=== PATIENT | male | born 1935 | race Two or more races ===

== ENCOUNTER 2017-04-09 03:20 | Inpatient (IN) | payer MEDICARE, OTHER ==
[~2017-04-09] VITALS: Ht 188 cm; Wt 80.3 kg
[~2017-04-09 03:20] MED LIST: ASPI-991 PO; Bisacodyl PO; CARV6.252 PO
--- NOTE | 2017-04-09 03:30 | NUR ---
PT AMBULATORY TO ER BED 6, BB SELF. "I'VE BEEN SWEATY AND FEEL DISORIENTED THIS MORNING." PT AOX4 RR EVEN AND UNLABORED. NO SOB NOTED. NAD NOTED. NO NVD AT THIS TIME. PT GOWNED AND PLACED ON MONITOR WAITING FOR MD JARA.
--- NOTE | 2017-04-09 03:40 | NUR ---
DR. BRICEÑO AT BEDSIDE FOR EVAL.
[2017-04-09] MEDS ORDERED: IV NS 0.9% 500 ML BAG IV ONE (04:00)
[2017-04-09] MEDS ORDERED: IV SET PRIMARY 1 EA INFUS.SET MC ONE (04:07)
[2017-04-09] MEDS ORDERED: IV NS 0.9% 500 ML IV ONE (04:07)
[2017-04-09 04:08] LABS: BASOPHILS # (AUTO) 0.1 /CMM (0.0-0.2); BASOPHILS % (AUTO) 0.7 % (0.0-2.0); EOSINOPHILS # (AUTO) 0.3 /CMM (0.0-0.7); EOSINOPHILS % (AUTO) 3.3 % (0.0-6.0); HEMATOCRIT 43 % (39-51); HEMOGLOBIN 14.4 g/dL (13.5-17.5); LYMPHOCYTES # (AUTO) 1.7 /CMM (0.8-4.8); LYMPHOCYTES % (AUTO) 21.3 % (20.0-44.0); MEAN CORPUSCULAR HEMOGLOBIN 31 PG (26.0-33.0); MEAN CORPUSCULAR HGB CONC 34 g/dl (31.0-36.0); MEAN CORPUSCULAR VOLUME 94 fL (80-96); MONOCYTES # (AUTO) 0.6 /CMM (0.1-1.30); MONOCYTES % (AUTO) 7.9 % (2.0-12.0); NEUTROPHILS # (AUTO) 5.5 /CMM (1.8-8.9); NEUTROPHILS % (AUTO) 66.8 % (43.0-81.0); PLATELET COUNT (AUTO) 214 /CMM (150-450); RDW COEFFICIENT OF VARIATION 13.8 (11.5-15.0); RED BLOOD CELL COUNT(AUTO) 4.59 MIL/uL (4.5-6.0); WHITE BLOOD COUNT (AUTO) 8.2 K/uL (4.3-11.0)
[2017-04-09 04:20] LABS: SERUM AMMONIA 25 umol/L (11-32)
[2017-04-09 04:26] LABS: ALANINE AMINOTRANSFERASE 18 U/L (12-78); ALBUMIN 3.3 g/dL (3.4-5.0); ALKALINE PHOSPHATASE 112 U/L (46-116); ASPARTATE AMINOTRANSFERASE 21 U/L (15-37); BILIRUBIN,DIRECT 0.1 mg/dL (0.0-0.2); BILIRUBIN,TOTAL 0.5 mg/dL (0.2-1.0); CALCIUM, SERUM 9.9 mg/dL (8.5-10.1); CARBON DIOXIDE 24 mmol/L (21-32); CHLORIDE 107 mmol/L (98-107); CREATININE 2.7 mg/dL (0.6-1.3); GLUCOSE 98 mg/dL (74-106); POTASSIUM 4.4 mmol/L (3.5-5.1); SODIUM SERUM 142 mmol/L (136-145); TOTAL PROTEIN, SERUM 7.2 g/dL (6.4-8.2); UREA NITROGEN, BLOOD 56 mg/dL (7-18)
[2017-04-09 04:28] LABS: INR 1.02 (0.87-1.13); PROTHROMBIN TIME 10.9 SECS (9.5-12.7)
--- NOTE | 2017-04-09 04:29 | NUR ---
PT TO CT.
[2017-04-09 04:30] LABS: SALICYLATE 0.9 mg/dL (2.8-20.0)
[2017-04-09 04:34] LABS: ALCOHOL, BLOOD < 3 mg/dL (0-0)
--- NOTE | 2017-04-09 04:39 | NUR ---
PT RETURNED FROM CT.
[2017-04-09 04:51] LABS: THYROID STIMULATING HORMONE 3.733 uIU/mL (0.358-3.74); TROPONIN I 0.036 ng/mL (0.00-0.056)
--- NOTE | 2017-04-09 05:26 | NUR ---
DR. NEGRA ORELLANA
--- NOTE | 2017-04-09 05:29 | NUR ---
ASSIGNED TELE BED 323-2
--- NOTE | 2017-04-09 05:33 | NUR ---
URINE COLLECTED. CALLED LAB FOR FINISHING SUPERVISOR
--- NOTE | 2017-04-09 05:39 | NUR ---
REPORT GIVEN TO HARMAN RAMSEY FOR TELE BED 323-2
--- NOTE | 2017-04-09 05:56 | NUR ---
SECOND CALL MADE FOR NEGRA
[2017-04-09 05:58] LABS: APPEARANCE,URINE CLOUDY (CLEAR); COLOR,URINE YELLOW (YELLOW)
[2017-04-09 05:59] LABS: PROTEIN,URINE 1+ mg/dl (NEGATIVE)
[2017-04-09 06:00] LABS: BILIRUBIN,URINE NEGATIVE (NEGATIVE); BLOOD, URINE 3+ Ery/uL (NEGATIVE); KETONES,URINE NEGATIVE (NEGATIVE); UGLUCOSE NEGATIVE (NEGATIVE)
[2017-04-09 06:01] LABS: LEUKOCYTE ESTERASE ,URINE 3+ (NEGATIVE); NITRITE, URINE POSITIVE (NEGATIVE); UROBILINOGEN,URINE 0.2 EU/dL (0.2)
[2017-04-09 06:03] LABS: BACTERIA,URINE 3+ /HPF (None Seen); SQUAMOUS EPITHELIAL CELL,UR Rare /HPF (None Seen); WBC,URINE TOO NUMEROUS TO COUN /HPF (0-3)
--- NOTE | 2017-04-09 06:03 | NUR ---
DR. LEE SPEAKING TO DR. BRICEÑO REGARDING ADMISSION
[2017-04-09 06:30] VITALS: BP 133/67
--- NOTE | 2017-04-09 06:30 | NUR ---
TELE HUMAN RESOURCES REPRESENTATIVE INITIAL NOTES' ADMIT PT FROM ER VIA GUROFELIA ACCOMPANIED BY ER NURSE. DX OF AMS. PT IS AWAKE AND ALERT ORIENTED WHERE HE AT AND HOW TO USED THE CALL LIGHT SYSTEM. DENIES ANY PAIN OR ANY DISCOMFORT. SKIN WARM AND DRY TO TOUCH. HEPLOCK RIGHT HAND GAUGE 18 PATENT AND INTACT . 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 KEPT HIM WARM AND COMFORTABLE AT ALL TIMES. PLACE CALL LIGHT AT REACH. ENDORSE TO AM NURSE FOR CONTINUITY OF CARE.
[2017-04-09] MEDS ORDERED: ONDANSETRON HCL/PF 4 MG/2 ML VIAL IVP PRN (07:30)
[2017-04-09] MEDS ORDERED: Z GUARD REMEDY 2 OZ OINT TP PRN (07:30)
[2017-04-09] MEDS ORDERED: ZOLPIDEM TARTRATE 5 MG TABLET PO PRN (07:30)
[2017-04-09] MEDS ORDERED: MAGNESIUM HYDROXIDE 30 ML UDC PO PRN (07:30)
[2017-04-09] MEDS ORDERED: ACETAMINOPHEN 325 MG TABLET PO PRN (07:30)
[2017-04-09] MEDS ORDERED: MAG HYDROX/AL HYDROX/SIMETH 30 ML UDC PO PRN (07:30)
[2017-04-09] MEDS ORDERED: HYDROCODONE/APAP 5/325MG 1 EACH TABLET PO PRN (07:30)
--- NOTE | 2017-04-09 07:30 | NUR ---
DANCE MASTER INITIAL NOTE PT ON BED, AWAKE AND ALERT ORIENTED X3. HARD OF HEARING WHICH HE CLAIMS NEW TO HIM. AMBULATORY, DENIES ANY PAIN OR ANY DISCOMFORT. SKIN WARM AND DRY TO TOUCH. HEPLOCK RIGHT HAND GAUGE 18 PATENT AND INTACT. TELE SR WITH BBB WITH PVC'S HEART RATE 73. KEPT HIM WARM AND COMFORTABLE AT ALL TIMES. PLACE CALL LIGHT AT REACH.
[2017-04-09 08:00] VITALS: BP 137/61
[2017-04-09] MEDS: CARVEDILOL 6.25 MG TABLET PO SCH ×2 (09:00→16:50)
[2017-04-09] MEDS ORDERED: IV SET PRIMARY PUMP SET 1 EA INFUS.SET MC ONE (10:00)
[2017-04-09 10:02] LABS: MAGNESIUM 2.1 mg/dL (1.8-2.4); PHOSPHORUS 3.3 mg/dL (2.5-4.9)
[2017-04-09] MEDS: ASPIRIN EC 81 MG TABLET.DR PO SCH (10:12)
[2017-04-09] MEDS: PANTOPRAZOLE 40 MG TABLET.DR PO SCH (10:17)
[2017-04-09] MEDS: IV NS 0.9% 1,000 ML IV PRN (10:17)
[2017-04-09 16:00] VITALS: BP 138/71
[2017-04-09] MEDS ORDERED: SECONDARY IV SET 1 EA INFUS.SET MC ONE (17:38)
[2017-04-09] MEDS ORDERED: CEFTRIAXONE 1 G in IV D5W 50 ML IV SCH (18:00)
--- NOTE | 2017-04-09 19:30 | NUR ---
RN NOTE; RECEIVED PT IN BED AWAKE, A, OX3. BREATHING EVENLY. NO SOB. NO DISTRESS. NO C/O PAIN OR DISCOMFORT. NEEDS ATTENDED. CALL LIGHT WITHIN REACH. WILL CONT TO MONITOR.
[2017-04-09 20:00] VITALS: BP 133/79
--- NOTE | 2017-04-10 06:28 | NUR ---
RN NOTE; PT IN BED AWAKE AND ALERT. BREATHING EVENLY. NO ACUTE CHANGES DURING THE NIGHT. REMAINED ORIENTED. NO SEIZURE ACTIVITY. NO C/O PAIN OR DISCOMFORT. NEEDS MET. CALL LIGHT WITHIN REACH. WILL CONT TO MONITOR AND WILL ENDORSE TO AM SHIFT FOR [place].
[2017-04-10] MEDS: IV NS 0.9% 1,000 ML IV PRN (06:50)
--- NOTE | 2017-04-10 07:00 | NUR ---
MS RN INITIAL NOTES REPORT RECEIVED AT THE BEDSIDE. PATIENT IS RESTING COMFORTABLY IN BED. NO SOB OR DISTRESS NOTED AT THIS TIME. PATIENT DENIES PAIN. PATIENT STATES "I WANT TO GO HOME TODAY." BED IN A LOW POSITION, CALL LIGHT WITHIN PATIENT REACH. WILL CONTINUE TO MONITOR.
--- NOTE | 2017-04-10 07:40 | NUR ---
RN NOTES FROM REPORT, DR BERNARDO WROTE IN NOTES THAT PATIENT IS FOR POSSIBLE STRESS TEST. NO ORDERS ARE PLACED. WILL HOLD MORNING MEDS AND FOOD UNTIL ABLE TO SPEAK TO MD.
[2017-04-10 07:56] LABS: BASOPHILS # (AUTO) 0.1 /CMM (0.0-0.2); BASOPHILS % (AUTO) 0.8 % (0.0-2.0); EOSINOPHILS # (AUTO) 0.4 /CMM (0.0-0.7); EOSINOPHILS % (AUTO) 5.5 % (0.0-6.0); HEMATOCRIT 42 % (39-51); HEMOGLOBIN 14.1 g/dL (13.5-17.5); LYMPHOCYTES # (AUTO) 1.5 /CMM (0.8-4.8); LYMPHOCYTES % (AUTO) 19.4 % (20.0-44.0); MEAN CORPUSCULAR HEMOGLOBIN 32 PG (26.0-33.0); MEAN CORPUSCULAR HGB CONC 34 g/dl (31.0-36.0); MEAN CORPUSCULAR VOLUME 94 fL (80-96); MONOCYTES # (AUTO) 0.6 /CMM (0.1-1.30); MONOCYTES % (AUTO) 8.5 % (2.0-12.0); NEUTROPHILS # (AUTO) 4.9 /CMM (1.8-8.9); NEUTROPHILS % (AUTO) 65.8 % (43.0-81.0); PLATELET COUNT (AUTO) 208 /CMM (150-450); RDW COEFFICIENT OF VARIATION 13.7 (11.5-15.0); RED BLOOD CELL COUNT(AUTO) 4.42 MIL/uL (4.5-6.0); WHITE BLOOD COUNT (AUTO) 7.5 K/uL (4.3-11.0)
[2017-04-10 08:00] VITALS: BP 133/67
[2017-04-10 08:20] LABS: CALCIUM, SERUM 9.5 mg/dL (8.5-10.1); CARBON DIOXIDE 24 mmol/L (21-32); CHLORIDE 108 mmol/L (98-107); CREATININE 2.5 mg/dL (0.6-1.3); GLUCOSE 89 mg/dL (74-106); PHOSPHORUS 2.9 mg/dL (2.5-4.9); POTASSIUM 4.3 mmol/L (3.5-5.1); SODIUM SERUM 139 mmol/L (136-145); UREA NITROGEN, BLOOD 47 mg/dL (7-18)
[2017-04-10] MEDS: PANTOPRAZOLE 40 MG TABLET.DR PO SCH (08:48)
[2017-04-10] MEDS: ASPIRIN EC 81 MG TABLET.DR PO SCH (08:48)
[2017-04-10] MEDS: CARVEDILOL 6.25 MG TABLET PO SCH ×2 (08:49→16:44)
[2017-04-10 12:01] LABS: CHOLESTEROL 128 mg/dL (<200); HDL CHOLESTEROL 42 mg/dL (40-60); LDL 67 mg/dL (0-99); TRIGLYCERIDES 74 mg/dL (30-150)
[2017-04-10] MEDS ORDERED: hydrALAZINE HCL 25 MG TABLET PO SCH (13:00)
[2017-04-10] MEDS ORDERED: SULF1TAB48 PO (15:23)
[2017-04-10] MEDS ORDERED: HYDR-4076 PO (15:32)
[2017-04-10 16:44] VITALS: BP 133/80
--- NOTE | 2017-04-10 16:58 | NUR ---
MS FIBER DRIER OPERATOR NOTES DISCHARGE INSTRUCTIONS GIVEN TO THE PATIENT AND HIS DAUGHTER AND ABLE TO UNDERSTAND. PAPERWORK SIGNED AND BELONGINGS ACCOUNTED FOR. NEW PRESCRIPTIONS GIVEN TO THE PATIENT WITH INSTRUCTIONS TO START THE MEDICATIONS TONIGHT. PATIENT HAS ALREADY MADE A FOLLOW UP APPOINTMENT WITH DR BERNARDO AND WILL OBTAIN RESULTS OF THE EEG TAKEN TODAY IN OUTPATIENT. IV DISCONNECTED AND PRESSURE APPLIED, NO BLEEDING NOTED AT THE SITE. NO SOB OR DISTRESS NOTED AT THIS TIME. PATIENT DENIES PAIN. PATIENT LEFT IN STABLE CONDITION, AMBULATORY WITH STEADY GAIT, ACCOMPANIED BY DAUGHTER. PATIENT TO DISCHARGE HOME.
[2017-04-11 09:23] LABS: *SPE A/G RATIO 1.2 (0.7-1.7); *SPE ALBUMIN 3.6 g/dL (2.9-4.4); *SPE ALPHA-1-GLOBULIN 0.2 g/dL (0.0-0.4); *SPE ALPHA-2-GLOBULIN 0.8 g/dL (0.4-1.0); *SPE BETA GLOBULIN 0.8 g/dL (0.7-1.3); *SPE GLOBULIN, TOTAL 3.1 g/dL (2.2-3.9); *SPE M-SPIKE Not Observed g/dL (Not Observed); *SPE PROTEIN TOTAL 6.7 g/dL (6.0-8.5); *SPEGAMMA GLOBULIN 1.3 g/dL (0.4-1.8)
== END 2017-04-10 16:45 | disposition home or self-care (01) | DRG 682 ==
LOC: ER 03:21 → TELE 05:30 → MED 10:02
PROVIDERS: ADMIT Internal Medicine; ATTEND Internal Medicine
DX: N17.0 Acute kidney failure with tubular necrosis (principal); G93.41 Metabolic encephalopathy; N39.0 Urinary tract infection, site not specified; E44.1 Mild protein-calorie malnutrition; I42.9 Cardiomyopathy, unspecified; N13.8 Other obstructive and reflux uropathy; Z85.038 Personal history of other malignant neoplasm of large intestine; I25.10 Atherosclerotic heart disease of native coronary artery without angina pectoris; N18.9 Chronic kidney disease, unspecified; Z86.73 Personal history of transient ischemic attack (TIA), and cerebral infarction without residual deficits; Z87.442 Personal history of urinary calculi; Z68.22 Body mass index [BMI] 22.0-22.9, adult; A49.01 Methicillin susceptible Staphylococcus aureus infection, unspecified site; R07.9 Chest pain, unspecified; I49.3 Ventricular premature depolarization
CPT/HCPCS: 36415; 70450-TC; 71010-TC; 76770-TC; 80048-TC; 80061-TC; 80076-TC; 81000-TC; 82140-TC; 83735-TC; 84100-TC; 84155; 84165; 84439-TC; 84443-TC; 84484-TC; 85025-TC; 85730-TC; 87081-TC; 87086-TC; 93307-TC; 95819-TC; 97001-TC; G0480; J0696; J7030; J7040; J7060; Z7610

== ENCOUNTER 2019-01-09 13:18 | Inpatient (IN) | payer MEDICARE, OTHER ==
[~2019-01-09] VITALS: Ht 182.9 cm; Wt 80.7 kg
[~2019-01-09 13:18] MED LIST changes: +ASPI-1152 PO; -ASPI-991 PO; +HYDR-4076 PO; +SULF1TAB48 PO
--- NOTE | 2019-01-09 13:26 | NUR ---
PT LABS DRAWNED AND SENT TO LAB.
--- NOTE | 2019-01-09 13:29 | NUR ---
PT SEAN RAHMAN 102 "was out w/room mate and he called stating he was not acting right- had a blank stare and was confused had similar incidents" PT IS AAOX3, NOT IN RESPIRATORY DISTRESS, V/S STABLE, HOOOKED TO MONITOR, KEPT RESTED AND COMFORTABLE, WILL CONTINUE TO MONITOR.
[2019-01-09] MEDS ORDERED: IV NS 0.9% 500 ML BAG IV ONE (13:30)
--- NOTE | 2019-01-09 13:30 | NUR ---
SEEN AND EXAMINED BY INNA MALDONADO
[2019-01-09 13:36] LABS: BASOPHILS % (AUTO) 0.8 % (0.0-2.0); EOSINOPHILS % (AUTO) 3.2 % (0.0-6.0); HEMATOCRIT 38 % (39-51); HEMOGLOBIN 12.6 g/dL (13.5-17.5); MEAN CORPUSCULAR HGB CONC 33 g/dl (31.0-36.0); MEAN CORPUSCULAR VOLUME 97 fL (80-96); MONOCYTES # (AUTO) 0.6 /CMM (0.1-1.30); MONOCYTES % (AUTO) 11.4 % (2.0-12.0); NEUTROPHILS # (AUTO) 3.8 /CMM (1.8-8.9); NEUTROPHILS % (AUTO) 66.6 % (43.0-81.0); PLATELET COUNT (AUTO) 169 /CMM (150-450); RED BLOOD CELL COUNT(AUTO) 3.93 MIL/uL (4.5-6.0); WHITE BLOOD COUNT (AUTO) 5.7 K/uL (4.3-11.0)
--- NOTE | 2019-01-09 13:44 | NUR ---
URINE SPECIMEN COLLECTED AND SENT TO LAB.
[2019-01-09 13:45] LABS: CALCIUM, SERUM 9.7 mg/dL (8.5-10.1); CARBON DIOXIDE 25 mmol/L (21-32); CHLORIDE 107 mmol/L (98-107); CREATININE 2.9 mg/dL (0.6-1.3); GLUCOSE 118 mg/dL (74-106); POTASSIUM 5.1 mmol/L (3.5-5.1); SODIUM SERUM 136 mmol/L (136-145); UREA NITROGEN, BLOOD 67 mg/dL (7-18)
[2019-01-09 13:56] LABS: ALANINE AMINOTRANSFERASE 18 U/L (12-78); ALBUMIN 3.3 g/dL (3.4-5.0); ALCOHOL, BLOOD < 3 mg/dL (0-0); ALKALINE PHOSPHATASE 118 U/L (46-116); ASPARTATE AMINOTRANSFERASE 18 U/L (15-37); BILIRUBIN,DIRECT 0.1 mg/dL (0.0-0.2); BILIRUBIN,TOTAL 0.2 mg/dL (0.2-1.0); TOTAL PROTEIN, SERUM 6.9 g/dL (6.4-8.2)
--- NOTE | 2019-01-09 14:00 | NUR ---
PT IS WHEELED TO CT SCAN VIA [facility].
[2019-01-09 14:05] LABS: APPEARANCE,URINE Turbid (CLEAR); BILIRUBIN,URINE Negative (NEGATIVE); BLOOD, URINE Moderate Ery/uL (NEGATIVE); COLOR,URINE Yellow (YELLOW); KETONES,URINE Negative (NEGATIVE); LEUKOCYTE ESTERASE ,URINE Large (NEGATIVE); NITRITE, URINE Positive (NEGATIVE); PROTEIN,URINE 100 mg/dl (NEGATIVE); UGLUCOSE Negative (NEGATIVE); UROBILINOGEN,URINE 0.2 EU/dL (0.2)
[2019-01-09 14:07] LABS: BACTERIA,URINE 3+ /HPF (None Seen); RBC,URINE 21-50 /HPF (0-2); WBC,URINE TOO NUMEROUS TO COUN /HPF (0-3)
[2019-01-09 14:08] LABS: SQUAMOUS EPITHELIAL CELL,UR None Seen /HPF (None Seen)
[2019-01-09] MEDS ORDERED: CEFTRIAXONE 1GM BAG (ER ONLY) 50 ML IV ONE (14:26)
[2019-01-09] MEDS ORDERED: CEFTRIAXONE 1GM BAG (ER ONLY) 1 GM/50 ML PIGGYBACK IV ONE (14:30)
--- NOTE | 2019-01-09 14:33 | NUR ---
CALLED NURSING SUP. FOR TELE BED
[2019-01-09] MEDS ORDERED: MAGNESIUM HYDROXIDE 30 ML UDC PO PRN (15:00)
[2019-01-09] MEDS ORDERED: Z GUARD REMEDY 2 OZ OINT TP PRN (15:00)
[2019-01-09] MEDS ORDERED: ONDANSETRON HCL/PF 4 MG/2 ML VIAL IVP PRN (15:00)
[2019-01-09] MEDS ORDERED: ACETAMINOPHEN 325 MG TABLET PO PRN (15:00)
[2019-01-09] MEDS ORDERED: ZOLPIDEM TARTRATE 5 MG TABLET PO PRN (15:00)
[2019-01-09] MEDS ORDERED: HYDROCODONE/APAP 5/325MG 1 EACH TABLET PO PRN (15:00)
[2019-01-09] MEDS ORDERED: MAG HYDROX/AL HYDROX/SIMETH 30 ML UDC PO PRN (15:00)
--- NOTE | 2019-01-09 15:07 | NUR ---
REPORT GIVEN TO HARMAN TORRES FOR [place].
[2019-01-09] MEDS ORDERED: LEVE250T2 PO (15:18)
[2019-01-09] MEDS ORDERED: VALS40TA4 PO (15:27)
[2019-01-09] MEDS ORDERED: BISACODYL (5 MG) 5 MG TABLET.DR PO PRN (16:00)
[2019-01-09] MEDS ORDERED: LEVETIRACETAM (250 MG) 250 MG TABLET PO SCH ×2 (16:30)
[2019-01-09] MEDS: VALSARTAN 40 MG TABLET PO SCH (16:30)
[2019-01-09] MEDS: LEVETIRACETAM (250 MG) 250 MG TABLET PO SCH ×2 (16:30→21:54)
[2019-01-09 17:00] VITALS: BP 108/63
[2019-01-09] MEDS: CARVEDILOL 6.25 MG TABLET PO SCH (17:00)
--- NOTE | 2019-01-09 19:44 | NUR ---
RN NOTE RECEIVED PATIENT FROM ER 1400. ALERT AND ORIENTED. DAUGHTER AT BEDSIDE. VITALS WNL, BLOOD PRESSURE LOW, DID NOT ADMINISTER BLOOD PRESSURE MEDICATION PER PROTOCAL. FAMILY AWARE. ENFORCE IMPORTANCE OF SEIZURE MEDICATION AND COMPLIANCE. BED IN LOW POSITION, CONT TO MONITOR.
--- NOTE | 2019-01-09 19:50 | NUR ---
RN NOTES RECEIVED PATIENT AWAKE IN BED, NO APPARENT DISTRESS NOTED, DENIES ANY PAIN, IV ACCESS INTACT AND PATENT, ALL SAFETY MEASURES IN PLACED, BED IN LOW LOCKED POSITION, BED SIDE RAILS UP X2, WILL MONITOR ACCORDINGLY.
[2019-01-09 21:00] VITALS: BP 108/63
[2019-01-09] MEDS ORDERED: hydrALAZINE HCL 25 MG TABLET PO SCH (21:00)
[2019-01-10] VITALS (7 sets, daily range): BP systolic 91–125; BP diastolic 48–70
--- NOTE | 2019-01-10 07:36 | NUR ---
RN NOTES ALL NEEDS ATTENDED AND MET, ABLE TO REST AND SLEEP WITH LONG INTERVALS, ENDORSED TO AM NURSE FOR CONTINUITY OF CARE.
--- NOTE | 2019-01-10 07:38 | NUR ---
GRAIN PACKER OPENING NOTES RECEIVED PATIENT FROM REGIONAL GEODETIC ADVISOR RN. PATIENT IN BED SLEEPING. NO S/S OF DISTRESS. LAC IV ACCESS INTACT AND PATENT, ALL SAFETY MEASURES IN PLACED, BED IN LOW LOCKED POSITION, BED SIDE RAILS UP X2, WILL CONTINUE TO MONITOR.
[2019-01-10 07:52] LABS: BASOPHILS % (AUTO) 0.7 % (0.0-2.0); EOSINOPHILS % (AUTO) 4.3 % (0.0-6.0); HEMATOCRIT 37 % (39-51); HEMOGLOBIN 12.3 g/dL (13.5-17.5); LYMPHOCYTES # (AUTO) 1.4 /CMM (0.8-4.8); LYMPHOCYTES % (AUTO) 20.4 % (20.0-44.0); MEAN CORPUSCULAR HGB CONC 34 g/dl (31.0-36.0); MEAN CORPUSCULAR VOLUME 97 fL (80-96); MONOCYTES # (AUTO) 0.8 /CMM (0.1-1.30); MONOCYTES % (AUTO) 11.3 % (2.0-12.0); NEUTROPHILS # (AUTO) 4.2 /CMM (1.8-8.9); NEUTROPHILS % (AUTO) 63.3 % (43.0-81.0); PLATELET COUNT (AUTO) 182 /CMM (150-450); RED BLOOD CELL COUNT(AUTO) 3.78 MIL/uL (4.5-6.0); WHITE BLOOD COUNT (AUTO) 6.6 K/uL (4.3-11.0)
[2019-01-10 08:24] LABS: CALCIUM, SERUM 9.4 mg/dL (8.5-10.1); CARBON DIOXIDE 22 mmol/L (21-32); CHLORIDE 110 mmol/L (98-107); CREATININE 2.6 mg/dL (0.6-1.3); GLUCOSE 94 mg/dL (74-106); MAGNESIUM 1.9 mg/dL (1.8-2.4); PHOSPHORUS 3.2 mg/dL (2.5-4.9); POTASSIUM 5.4 mmol/L (3.5-5.1); SODIUM SERUM 141 mmol/L (136-145); UREA NITROGEN, BLOOD 58 mg/dL (7-18)
[2019-01-10 08:35] LABS: CHOLESTEROL 108 mg/dL (<200); HDL CHOLESTEROL 37 mg/dL (40-60); LDL 66 mg/dL (0-99); TRIGLYCERIDES 63 mg/dL (30-150)
[2019-01-10] MEDS: ASPIRIN EC 81 MG TABLET.DR PO SCH (09:12)
[2019-01-10] MEDS: CARVEDILOL 6.25 MG TABLET PO SCH ×2 (09:12→16:17)
[2019-01-10] MEDS: VALSARTAN 40 MG TABLET PO SCH (09:13)
[2019-01-10] MEDS: LEVETIRACETAM (250 MG) 250 MG TABLET PO SCH ×2 (09:13→20:27)
--- NOTE | 2019-01-10 12:51 | NUR ---
VETERINARY MEDICINE SCIENTIST NOTE MD BEDSIDE. PATIENT WILL STAY OVERNIGHT TO BE MONITORED. CONTINUE AB D/T POSITIVE BLOOD CULTURE RESULTS. NEURO CONSULT STILL PENDING.
--- NOTE | 2019-01-10 14:47 | NUR ---
WEIR FISHERMAN NOTE URINE SPECIMEN COLLECTED AND SENT TO LABS FOR UA
[2019-01-10] MEDS: CEFTRIAXONE 1 G in IV D5W 50 ML IV SCH (15:03)
--- NOTE | 2019-01-10 19:30 | NUR ---
RN MS OPENING NOTES RECEIVED PATIENT IN BED AWAKE. ALERT AND ORIENTED X4, VERBALLY RESPONSIVE, ABLE TO MAKE NEEDS KNOWN. BREATHING EVEN AND UNLABORED. NO SOB NOTED. TOLERATING ROOM AIR. NO COMPLAINTS OF PAIN OR DISCOMFORT. NO FACIAL GRIMACING. IV ON LEFT AC G#18 INTACT AND PATENT. SKIN DRY AND WARM TO TOUCH. AFEBRILE. ALL OTHER NEEDS ATTENDED TO. SAFETY MEASURES IN PLACE. CALL LIGHT WITHIN REACH. WILL CONTINUE TO MONITOR.
--- NOTE | 2019-01-10 19:32 | NUR ---
TUBULAR RIVETER CLOSING NOTE PATIENT IN BED SUPINE WATCHING TELEVISION. NO S/S OF DISTRESS. LAC IV ACCESS INTACT AND PATENT, ALL SAFETY MEASURES IN PLACE, BED IN LOW LOCKED POSITION, BED SIDE RAILS UP X2, PATIENT CARE ENDORSED TO SERVICE LINE BUS CLEANER RN.
[2019-01-11 04:00] VITALS: BP 116/72
--- NOTE | 2019-01-11 06:35 | NUR ---
RN MS CLOSING NOTES PATIENT RESTING IN BED. NO ACUTE CHANGES THROUGHOUT SHIFT. BREATHING EVEN AND UNLABORED. NO SOB NOTED. TOLERATING ROOM AIR. NO COMPLAINTS OF PAIN OR DISCOMFORT. NO FACIAL GRIMACING. IV ON LEFT AC G#18 INTACT AND PATENT. SKIN DRY AND WARM TO TOUCH. AFEBRILE. ALL OTHER NEEDS ATTENDED TO. SAFETY MEASURES IN PLACE. CALL LIGHT WITHIN REACH. WILL ENDORSE TO ONCOMING NURSE FOR [place].
[2019-01-11] MEDS: ASPIRIN EC 81 MG TABLET.DR PO SCH (08:51)
[2019-01-11] MEDS: VALSARTAN 40 MG TABLET PO SCH (08:52)
[2019-01-11] MEDS: LEVETIRACETAM (250 MG) 250 MG TABLET PO SCH ×2 (08:54→21:21)
[2019-01-11] MEDS: CARVEDILOL 6.25 MG TABLET PO SCH ×2 (08:55→18:27)
[2019-01-11 10:33] LABS: BASOPHILS # (AUTO) 0.1 /CMM (0.0-0.2); BASOPHILS % (AUTO) 0.9 % (0.0-2.0); EOSINOPHILS % (AUTO) 4.2 % (0.0-6.0); HEMATOCRIT 39 % (39-51); HEMOGLOBIN 12.8 g/dL (13.5-17.5); LYMPHOCYTES # (AUTO) 1.1 /CMM (0.8-4.8); LYMPHOCYTES % (AUTO) 16.1 % (20.0-44.0); MEAN CORPUSCULAR HGB CONC 33 g/dl (31.0-36.0); MEAN CORPUSCULAR VOLUME 96 fL (80-96); MONOCYTES # (AUTO) 0.7 /CMM (0.1-1.30); MONOCYTES % (AUTO) 11.1 % (2.0-12.0); NEUTROPHILS # (AUTO) 4.5 /CMM (1.8-8.9); NEUTROPHILS % (AUTO) 67.7 % (43.0-81.0); PLATELET COUNT (AUTO) 173 /CMM (150-450); RED BLOOD CELL COUNT(AUTO) 4.01 MIL/uL (4.5-6.0); WHITE BLOOD COUNT (AUTO) 6.6 K/uL (4.3-11.0)
[2019-01-11 10:47] LABS: ALANINE AMINOTRANSFERASE 13 U/L (12-78); ALBUMIN 3.2 g/dL (3.4-5.0); ALKALINE PHOSPHATASE 120 U/L (46-116); ASPARTATE AMINOTRANSFERASE 17 U/L (15-37); BILIRUBIN,TOTAL 0.4 mg/dL (0.2-1.0); CALCIUM, SERUM 9.6 mg/dL (8.5-10.1); CARBON DIOXIDE 23 mmol/L (21-32); CHLORIDE 106 mmol/L (98-107); CREATININE 2.7 mg/dL (0.6-1.3); GLUCOSE 93 mg/dL (74-106); MAGNESIUM 1.7 mg/dL (1.8-2.4); SODIUM SERUM 139 mmol/L (136-145); TOTAL PROTEIN, SERUM 6.9 g/dL (6.4-8.2); UREA NITROGEN, BLOOD 51 mg/dL (7-18)
[2019-01-11] MEDS: CEFTRIAXONE 1 G in IV D5W 50 ML IV SCH (15:13)
[2019-01-11 17:40] LABS: CREATININE, URINE 72.2 MG/DL (30.0-125.0); URINE SODIUM, RANDOM 74 mmol/l (40-220); URINE TOTAL PROTEIN 94.4 mg/dL (0-11.9)
[2019-01-11 18:01] LABS: COLOR,URINE YELLOW (YELLOW); PH,URINE 6.5 (5.0-8.0)
[2019-01-11 18:02] LABS: BILIRUBIN,URINE NEGATIVE (NEGATIVE); KETONES,URINE NEGATIVE (NEGATIVE); LEUKOCYTE ESTERASE ,URINE 3+ (NEGATIVE); NITRITE, URINE NEGATIVE (NEGATIVE); PROTEIN,URINE 1+ mg/dl (NEGATIVE); UGLUCOSE NEGATIVE (NEGATIVE); UROBILINOGEN,URINE 0.2 EU/dL (0.2)
[2019-01-11 18:03] LABS: BLOOD, URINE 2+ Ery/uL (NEGATIVE)
[2019-01-11 18:04] LABS: APPEARANCE,URINE TURBID (CLEAR)
[2019-01-11 18:26] LABS: BACTERIA,URINE Few /HPF (None Seen); SQUAMOUS EPITHELIAL CELL,UR Rare /HPF (None Seen); WBC,URINE TOO NUMEROUS TO COUN /HPF (0-3)
[2019-01-11 18:38] LABS: EOSINOPHIL,URINE Few
--- NOTE | 2019-01-11 20:33 | NUR ---
MS RN INITIAL NOTES Patient in bed, awake. Stable oxygen saturation on RA, denies shortness of breath. No c/o of bladder discomfort. Call light within reach, safety measure explained, verbalized understanding.
[2019-01-11 20:45] VITALS: BP 103/67
[2019-01-12 04:53] VITALS: BP 99/61
--- NOTE | 2019-01-12 06:26 | NUR ---
MS RN INITIAL NOTES Patient in bed, stable oxygen saturation on RA. Ambulates independently, voided without difficulty. On IV antibiotic as scheduled. Slept well, no episode of seizure, no acute events overnight. Call light within reach, maintained safety. Awaits Neuro consult. Low magnesium 1.7 from 01/11/19. Notified RESERVATIONS CLERK Karyn Moctezuma with no new orders at this time, per RESERVATIONS CLERK its borderline. Will endorse to oncmikayla RN. Addendum: 01/12/19 at 0627 by DIONE WILSON RN ABOVE NOTES: CLOSING
--- NOTE | 2019-01-12 07:15 | NUR ---
MS RN OPENING NOTES RECEIVED PATIENT IN BED SLEEPING.EASILY AROUSABLE. ALERT AND ORIENTED X4, VERBALLY RESPONSIVE, ABLE TO MAKE NEEDS KNOWN. BREATHING EVEN AND UNLABORED. NO SOB NOTED. TOLERATING ROOM AIR. NO COMPLAINTS OF PAIN OR DISCOMFORT. NO FACIAL GRIMACING. IV ON LEFT AC G#18 INTACT AND PATENT. SKIN DRY AND WARM TO TOUCH. AFEBRILE. ALL OTHER NEEDS ATTENDED TO. SAFETY MEASURES IN PLACE. CALL LIGHT WITHIN REACH. BED IS LOW AND IN LOCKED POSITION.SRX2.WILL CONTINUE TO MONITOR.
--- NOTE | 2019-01-12 07:59 | NUR ---
MS RN NOTE SEEN BY WITH NEW ORDER TO INCREASE KEPPRA RTO 1000MG
[2019-01-12 08:00] VITALS: BP 107/66
[2019-01-12 08:15] LABS: BASOPHILS # (AUTO) 0.1 /CMM (0.0-0.2); BASOPHILS % (AUTO) 0.8 % (0.0-2.0); EOSINOPHILS % (AUTO) 5.4 % (0.0-6.0); HEMATOCRIT 39 % (39-51); HEMOGLOBIN 13.1 g/dL (13.5-17.5); LYMPHOCYTES # (AUTO) 1.4 /CMM (0.8-4.8); LYMPHOCYTES % (AUTO) 18.7 % (20.0-44.0); MEAN CORPUSCULAR HGB CONC 34 g/dl (31.0-36.0); MEAN CORPUSCULAR VOLUME 96 fL (80-96); MONOCYTES # (AUTO) 0.8 /CMM (0.1-1.30); MONOCYTES % (AUTO) 11.3 % (2.0-12.0); NEUTROPHILS # (AUTO) 4.6 /CMM (1.8-8.9); NEUTROPHILS % (AUTO) 63.8 % (43.0-81.0); PLATELET COUNT (AUTO) 192 /CMM (150-450); RED BLOOD CELL COUNT(AUTO) 4.08 MIL/uL (4.5-6.0); WHITE BLOOD COUNT (AUTO) 7.2 K/uL (4.3-11.0)
[2019-01-12 08:18] LABS: ALANINE AMINOTRANSFERASE 16 U/L (12-78); ALBUMIN 3.1 g/dL (3.4-5.0); ALKALINE PHOSPHATASE 122 U/L (46-116); ASPARTATE AMINOTRANSFERASE 19 U/L (15-37); BILIRUBIN,TOTAL 0.4 mg/dL (0.2-1.0); CALCIUM, SERUM 9.8 mg/dL (8.5-10.1); CARBON DIOXIDE 20 mmol/L (21-32); CHLORIDE 107 mmol/L (98-107); CREATININE 2.7 mg/dL (0.6-1.3); GLUCOSE 89 mg/dL (74-106); MAGNESIUM 1.7 mg/dL (1.8-2.4); PHOSPHORUS 3.2 mg/dL (2.5-4.9); POTASSIUM 4.7 mmol/L (3.5-5.1); SODIUM SERUM 138 mmol/L (136-145); TOTAL PROTEIN, SERUM 6.8 g/dL (6.4-8.2); UREA NITROGEN, BLOOD 49 mg/dL (7-18)
[2019-01-12 08:20] LABS: CREATINE KINASE, TOTAL 64 U/L (39-308)
[2019-01-12] MEDS: ASPIRIN EC 81 MG TABLET.DR PO SCH (08:58)
[2019-01-12] MEDS: VALSARTAN 40 MG TABLET PO SCH (08:58)
[2019-01-12] MEDS: CARVEDILOL 6.25 MG TABLET PO SCH (08:58)
[2019-01-12] MEDS ORDERED: LEVETIRACETAM (250 MG) 250 MG TABLET PO SCH (09:00)
[2019-01-12 10:00] VITALS: BP 107/61
[2019-01-12] MEDS ORDERED: Magnesium 1GM/D5W 100ML PREMIX 100 ML IV SCH (11:48)
[2019-01-12] MEDS: CEFTRIAXONE 1 G in IV D5W 50 ML IV SCH (15:58)
[2019-01-12 16:00] VITALS: BP 117/71
--- NOTE | 2019-01-12 16:30 | NUR ---
MS RN NOTE SEEN BY JOEL DE JESUS,UPDATED ABOUT PATIENT CONDITION.GOT ORDER TO D/C HOME .PATIENT MADE AWARE.
--- NOTE | 2019-01-12 16:45 | NUR ---
MR DRYWALL STRIPPER HELPER NOTE PATIENT DISCHARGED HOME IN STABLE CONDITION.NO SOB NO DISTRESS NOTED.D/C HOME WITH KAROLYN AND DAUGHTER TIMOTEO.EXIT CARE GIVEN .PATIENT AND DAUGHTER VERBALIZED UNDERSTANDING.DISCHARGE PAPERWORK GIVEN .EDUCATION GIVEN REGARDING SEIZURE.TOOK ALL BELONGINGS.;LEFT VIA PRIVATE CAR WITH KAROLYN.IV REMOVED.PRESSURE DRESSING APPLIED.NEW PRESCRIPTION GIVEN.EXPLAINED ABOUT NEW MEDICATION.
[2019-01-13 12:13] LABS: *SPE A/G RATIO 1.1 (0.7-1.7); *SPE ALBUMIN 3.2 g/dL (2.9-4.4); *SPE ALPHA-1-GLOBULIN 0.2 g/dL (0.0-0.4); *SPE ALPHA-2-GLOBULIN 0.8 g/dL (0.4-1.0); *SPE BETA GLOBULIN 0.8 g/dL (0.7-1.3); *SPE M-SPIKE Not Observed g/dL (Not Observed); *SPEGAMMA GLOBULIN 1.2 g/dL (0.4-1.8)
[2019-01-13 14:16] LABS: PTH, INTACT 117 pg/mL (15-65)
== END 2019-01-12 16:45 | disposition home or self-care (01) | DRG 689 ==
LOC: ER 13:20 → TELE1 15:08 → MEDSG1 01-10 13:25
PROVIDERS: ADMIT Family Medicine; ATTEND Nurse Practitioner Acute Care
DX: N39.0 Urinary tract infection, site not specified (principal); N17.0 Acute kidney failure with tubular necrosis; I13.0 Hypertensive heart and chronic kidney disease with heart failure and stage 1 through stage 4 chronic kidney disease, or unspecified chronic kidney disease; Q60.0 Renal agenesis, unilateral; I50.22 Chronic systolic (congestive) heart failure; R56.9 Unspecified convulsions; N18.9 Chronic kidney disease, unspecified; E87.5 Hyperkalemia; Z85.038 Personal history of other malignant neoplasm of large intestine; Z87.442 Personal history of urinary calculi; Z86.73 Personal history of transient ischemic attack (TIA), and cerebral infarction without residual deficits; Z98.890 Other specified postprocedural states; Z79.899 Other long term (current) drug therapy; Z79.82 Long term (current) use of aspirin; Z66 Do not resuscitate; B96.1 Klebsiella pneumoniae [K. pneumoniae] as the cause of diseases classified elsewhere
CPT/HCPCS: 36415; 70450-TC; 71045-TC; 76770-TC; 80048-TC; 80053-TC; 80061-TC; 80076-TC; 80305; 81000-TC; 82550-TC; 82570-TC; 82962-TC; 83735-TC; 83970; 84100-TC; 84155; 84155-TC; 84165; 84300-TC; 84484-TC; 85025-TC; 85730-TC; 87040-TC; 87081-TC; 87086-TC; 87186-TC; G0378; G0480; J0696; J7030; J7040; J7050; J7060

== ENCOUNTER 2020-09-05 12:29 | Inpatient (IN) | payer MEDICARE, OTHER ==
[~2020-09-05] VITALS: Ht 188 cm; Wt 83.5 kg
[~2020-09-05 12:29] MED LIST changes: -ASPI-1152 PO; +ASPI-1420 PO; -HYDR-4076 PO; +LEVE250T2 PO; -SULF1TAB48 PO; +VALS40TA4 PO
--- NOTE | 2020-09-05 12:35 | NUR ---
PT TERRENCE 89. C/O AMS. PER REPORT, HIS NEIGHBORS OBSERVED HIM WANDERING AROUND HIS APARTMENT THATS WHY THEY CALLED 911 BECAUSE PT WAS NOT APPROPRIATELY ANSWERING TO QUESTIONS. VS CHECKED. HOOKED ON MONITOR. EKG DONE. AWAITING MD JARA.
--- NOTE | 2020-09-05 12:37 | NUR ---
PT DAUGHTER SANTIAGO VELARDE PROVIDED WITH UPDATES RE PT CONDITION. [phone]
[2020-09-05 12:59] LABS: BASOPHILS # (AUTO) 0.1 /CMM (0.0-0.2); BASOPHILS % (AUTO) 0.8 % (0.0-2.0); EOSINOPHILS % (AUTO) 0.7 % (0.0-6.0); HEMATOCRIT 44 % (39-51); HEMOGLOBIN 14.3 g/dL (13.5-17.5); LYMPHOCYTES # (AUTO) 0.9 /CMM (0.8-4.8); MEAN CORPUSCULAR HGB CONC 33 g/dl (31.0-36.0); MEAN CORPUSCULAR VOLUME 97 fL (80-96); MONOCYTES # (AUTO) 0.5 /CMM (0.1-1.30); MONOCYTES % (AUTO) 6.4 % (2.0-12.0); NEUTROPHILS # (AUTO) 5.7 /CMM (1.8-8.9); NEUTROPHILS % (AUTO) 79.1 % (43.0-81.0); PLATELET COUNT (AUTO) 197 /CMM (150-450); RED BLOOD CELL COUNT(AUTO) 4.52 MIL/uL (4.5-6.0); WHITE BLOOD COUNT (AUTO) 7.2 K/uL (4.3-11.0)
[2020-09-05 13:09] LABS: CALCIUM, SERUM 10.2 mg/dL (8.5-10.1); CARBON DIOXIDE 24 mmol/L (21-32); CHLORIDE 102 mmol/L (98-107); CREATININE 3.2 mg/dL (0.6-1.3); GLUCOSE 110 mg/dL (74-106); POTASSIUM 3.9 mmol/L (3.5-5.1); SODIUM SERUM 138 mmol/L (136-145); UREA NITROGEN, BLOOD 33 mg/dL (7-18)
[2020-09-05 13:11] LABS: SERUM AMMONIA < 11 umol/L (11-32)
[2020-09-05 13:15] LABS: ALANINE AMINOTRANSFERASE 21 U/L (12-78); ALBUMIN 3.9 g/dL (3.4-5.0); ALCOHOL, BLOOD < 3 mg/dL (0-0); ALKALINE PHOSPHATASE 108 U/L (46-116); ASPARTATE AMINOTRANSFERASE 28 U/L (15-37); BILIRUBIN,DIRECT 0.2 mg/dL (0.0-0.2); BILIRUBIN,TOTAL 0.6 mg/dL (0.2-1.0); TOTAL PROTEIN, SERUM 7.6 g/dL (6.4-8.2)
--- NOTE | 2020-09-05 13:15 | NUR ---
COVID SWAB DONE. SENT TO LAB.
[2020-09-05 13:16] LABS: ACETAMINOPHEN 0 ug/ml (10-30)
[2020-09-05 13:22] LABS: THYROID STIMULATING HORMONE 3.842 uIU/mL (0.358-3.74)
--- NOTE | 2020-09-05 13:30 | NUR ---
MOVE SHEET COMPLETE AND CALLED FOR TELE BED.
--- NOTE | 2020-09-05 13:35 | NUR ---
TALKED TO GARETT,SON, WILL CALL HIM AT [phone] ONCE ALL RESULTS ARE BACK AND DR MUNGUIA IS READY TO TALK TO THEM, PATIENT INFORMED ANR TOLD HIM THAT HIS SON LOVES HIM REQUESTED
--- NOTE | 2020-09-05 13:47 | NUR ---
[facility] CALLED PUNCH MACHINE OPERATOR PAGED.
[2020-09-05 13:54] LABS: BILIRUBIN,URINE NEGATIVE (NEGATIVE); BLOOD, URINE SMALL Ery/uL (NEGATIVE); COLOR,URINE YELLOW (YELLOW); LEUKOCYTE ESTERASE ,URINE LARGE (NEGATIVE); NITRITE, URINE NEGATIVE (NEGATIVE); PH,URINE 6.5 (5.0-8.0); PROTEIN,URINE 100 mg/dl (NEGATIVE); UGLUCOSE NEGATIVE (NEGATIVE); UROBILINOGEN,URINE 0.2 EU/dL (0.2)
--- NOTE | 2020-09-05 13:58 | NUR ---
[facility] SPOKE WITH JINNY (DAUGHTER) [phone]. STATED "HE IS NOT ON ANY MEDICATION. HE WAS AT [facility] X2 DAYS FOR DEHYDRATION, WAS PRESCRIBED WITH THE FOLLOWING MEDICATION: ANTACID 650MG BID, ASA EC 81MG DAILY, CARVEDILOL 3.125MG BID, KEPPRA 250MG BID AND LIPITOR 40MG QPM, BUT HE DOESN'T TAKE THEM". PRIMARY NURSE AWARE.
[2020-09-05] MEDS ORDERED: ASPIRIN 81 MG TAB.CHEW PO ONE (14:00)
[2020-09-05] MEDS ORDERED: ASPIRIN EC 81 MG TABLET.DR PO ONE (14:01)
[2020-09-05 14:05] LABS: BACTERIA,URINE 1+ /HPF (None Seen); SQUAMOUS EPITHELIAL CELL,UR Rare /HPF (None Seen)
--- NOTE | 2020-09-05 14:11 | NUR ---
[facility] CALLED MACHINE MARKER PAGED.
--- NOTE | 2020-09-05 14:12 | NUR ---
CALLED PHARMACY FOR BHUPENDRA
[2020-09-05] MEDS: LEVETIRACETAM (500MG) 1,000 MG in IV NS 0.9% 100 ML IV SCH (14:15)
[2020-09-05] MEDS ORDERED: IV 1/2NS 1000 ML 1,000 ML IV PRN (15:00)
[2020-09-05] MEDS ORDERED: ACETAMINOPHEN 325 MG TABLET PO PRN (15:00)
[2020-09-05] MEDS ORDERED: MAG HYDROX/AL HYDROX/SIMETH 30 ML UDC PO PRN (15:00)
[2020-09-05] MEDS ORDERED: LORAZEPAM INJ 2 MG/ML VIAL IV PRN (15:00)
[2020-09-05] MEDS ORDERED: ONDANSETRON HCL/PF 4 MG/2 ML VIAL IVP PRN (15:00)
[2020-09-05] MEDS ORDERED: HYDROCODONE/APAP 5/325MG TABLET PO PRN (15:00)
[2020-09-05] MEDS ORDERED: Z GUARD REMEDY 2 OZ OINT TP PRN (15:00)
[2020-09-05] MEDS ORDERED: MAGNESIUM HYDROXIDE 30 ML UDC PO PRN (15:00)
[2020-09-05] MEDS ORDERED: ZOLPIDEM TARTRATE 5 MG TABLET PO PRN (15:00)
--- NOTE | 2020-09-05 15:05 | NUR ---
LAB CALLED PT COVID NEGATIVE (-)
--- NOTE | 2020-09-05 15:51 | NUR ---
CALLED KETTLE CHIPPER FOR BED ASSIGNMENT
--- NOTE | 2020-09-05 15:52 | NUR ---
ROOM 323-1
--- NOTE | 2020-09-05 16:10 | NUR ---
REPORT GIVEN TO EMILE HAMMER FOR [place]. PT WILL BE GOING TO 323-1.
--- NOTE | 2020-09-05 16:24 | NUR ---
PT TRANSFERRED TO 323-.
--- NOTE | 2020-09-05 16:30 | NUR ---
RASCHEL KNITTING MACHINE OPERATOR NOTES RECEIVED PATIENT FROM ER NURSE, FREYA. ORIENTED PATIENT TO ROOM, UNIT AND CALL LIGHT. ALERT AND AWAKE ORIENTED X4. AMBULATORY WITH UNSTEADY GAIT. ON TELE MONITORING SR WITH BBB, PVC: 89. RIGHT AC SL # 18 INTACT AND PATENT. ALL BELONGIGNS ACCOUNTED FOR. BED IN LOWEST POSITION, LOCKED. BED ALARM ON. CALL LIGHT WITHIN REACH. FREQUNET VISUAL CHECK DONE.
[2020-09-05] MEDS: CEFTRIAXONE 1 G in IV D5W 50 ML IV SCH (18:42)
--- NOTE | 2020-09-05 19:30 | NUR ---
CEMENT AND CONCRETE PLANT WORKER NOTES PATIENT RESTING COMFORTABLY IN BED, CONVERSING WITH DTR ON THE PHONE. ALERT AND AWAKE ORIENTED X4.RIGHT AC # 18 INTACT AND PATENT INFUSING 1/2 NS AT 75ML/HR ROMAN WELL. . BED IN LOWEST POSITION, LOCKED. BED ALARM ON. CALL LIGHT WITHIN REACH. FREQUENT VISUAL CHECK DONE. IN NO APPARENT DISTRESS.
[2020-09-05 20:00] VITALS: BP 123/80
[2020-09-06] VITALS: BP 98/68
[2020-09-06] MEDS ORDERED: LEVETIRACETAM (500MG) 500 MG/5 ML VIAL IV ONE (02:00)
[2020-09-06] MEDS: LEVETIRACETAM (500MG) 1,000 MG in IV NS 0.9% 100 ML IV SCH (02:13)
[2020-09-06 06:21] LABS: BASOPHILS # (AUTO) 0.1 /CMM (0.0-0.2); BASOPHILS % (AUTO) 0.6 % (0.0-2.0); EOSINOPHILS % (AUTO) 3.4 % (0.0-6.0); HEMATOCRIT 43 % (39-51); HEMOGLOBIN 14.3 g/dL (13.5-17.5); LYMPHOCYTES # (AUTO) 0.9 /CMM (0.8-4.8); LYMPHOCYTES % (AUTO) 8.4 % (20.0-44.0); MEAN CORPUSCULAR HGB CONC 33 g/dl (31.0-36.0); MEAN CORPUSCULAR VOLUME 97 fL (80-96); MONOCYTES # (AUTO) 0.6 /CMM (0.1-1.30); MONOCYTES % (AUTO) 5.5 % (2.0-12.0); NEUTROPHILS # (AUTO) 8.9 /CMM (1.8-8.9); NEUTROPHILS % (AUTO) 82.1 % (43.0-81.0); PLATELET COUNT (AUTO) 196 /CMM (150-450); RED BLOOD CELL COUNT(AUTO) 4.46 MIL/uL (4.5-6.0); WHITE BLOOD COUNT (AUTO) 10.8 K/uL (4.3-11.0)
--- NOTE | 2020-09-06 06:33 | NUR ---
AIRCRAFT BODY REPAIRER CLOSING NOTES PATIENT IN BED,IN NO APPARENT DISTRESS WITH EYES CLOSED. PT HAS 1:1 SITTER FOR SAFETY. AMBULATED WITH ASSIST TO BR X3 FOR 3 VOIDS. RIGHT AC # 18 INTACT AND PATENT INFUSING 1/2 NS AT 75ML/HR ROMAN WELL. . BED IN LOWEST POSITION, LOCKED. BED ALARM ON. CALL LIGHT WITHIN REACH. NO SEIZURE ACTIVITY DURING SHIFT. VS WNL DURING SHIFT. WILL CONT TO MONITOR AND ENDORSE TO ONCOMING SHFIT. SR BBB WITH PVC'S PER TELE MONITOR.
[2020-09-06 07:04] LABS: CHOLESTEROL 140 mg/dL (<200); HDL CHOLESTEROL 52 mg/dL (40-60); LDL 70 mg/dL (0-99); THYROID STIMULATING HORMONE 3.045 uIU/mL (0.358-3.74); TRIGLYCERIDES 102 mg/dL (30-150)
[2020-09-06 07:08] LABS: CALCIUM, SERUM 10.5 mg/dL (8.5-10.1); CARBON DIOXIDE 23 mmol/L (21-32); CHLORIDE 105 mmol/L (98-107); CREATININE 2.9 mg/dL (0.6-1.3); GLUCOSE 89 mg/dL (74-106); MAGNESIUM 2.4 mg/dL (1.8-2.4); PHOSPHORUS 2.2 mg/dL (2.5-4.9); POTASSIUM 3.9 mmol/L (3.5-5.1); SODIUM SERUM 139 mmol/L (136-145); UREA NITROGEN, BLOOD 33 mg/dL (7-18)
--- NOTE | 2020-09-06 07:45 | NUR ---
CASE MANAGER OPENING NOTES RECEIVED PATIENT RESTING IN BED A/OX3, ON RA, BREATHING EVEN AND UNLABORED WITH NO S/S OF SOB AND NO ACUTE RESPIRATORY DISTRESS NOTED.PT HAS 1:1 SITTER FOR SAFETY. PT ON TELE MONITOR READING SR BBB WITH PVC'S HR IN THE 70'S. IV TO RT AC #18G INTACT AND PATENT INFUSING 1/2 NS AT 75ML/HR. BED IS AT LOWEST POSITION AND LOCKED WITH SIDE RAILS UP X 2 AND BED ALARM ON, CALL LIGHT WITHIN REACH. WILL CONT TO MONITOR.
[2020-09-06 08:00] VITALS: BP 127/67
[2020-09-06] MEDS: NEUTRA PHOS 1 POWD.PACKET PO SCH ×2 (09:42→17:48)
--- NOTE | 2020-09-06 11:46 | NUR ---
ASSOCIATE PRODUCER NOTES SPOKE WITH DR. PÉREZ AND INFORMED HIM PT NEED PSYCH CONSULT. FACESHEET FAXED REQUESTED. DR. PÉREZ WILL EVALUATE PATIENT TOMORROW
[2020-09-06 12:00] VITALS: BP 114/65
[2020-09-06 16:00] VITALS: BP 123/79
[2020-09-06] MEDS: CEFTRIAXONE 1 G in IV D5W 50 ML IV SCH (17:55)
--- NOTE | 2020-09-06 18:25 | NUR ---
RN MS NOTES PATIENT RESTING IN BED A/OX3 WITH EPISODES OF FORGETFULNESS. ON RA, BREATHING EVEN AND UNLABORED WITH NO S/S OF SOB AND NO ACUTE RESPIRATORY DISTRESS NOTED.PT HAS 1:1 SITTER FOR SAFETY. IV TO RT HAND #22G PATENT AND INTACT KEPT SL. PT IS AMBULATORY WITH ASSIST BED IS AT LOWEST POSITION AND LOCKED WITH SIDE RAILS UP X 2 AND BED ALARM ON, CALL LIGHT WITHIN REACH. WILL ENDORSE TO ONCOMING SHIFT.
--- NOTE | 2020-09-06 19:30 | NUR ---
MS RN NOTES RECEIVED ON BED A/O X2-3,FORGETFUL,CONVERSANT,BREATHING REGULAR,NOT IN ANY FORM OF DISTRESS,SITTER AT BEDSIDE FOR SAFETY.SEIZURE PRECAUTIONS OBSERVED ,SIDE RAIL PADDED FOR SAFETY.SALINE LOCK RIGHT WRIST INTACT AND PATENT.DVT PUMP IN USED FOR DVT PROPHYLAXIS,VTE SCORE OF 5.CALL LIGHT IN REACH,NEEDS ANTICIPATED.
[2020-09-06 19:31] VITALS: BP 133/79
[2020-09-06 20:00] VITALS: BP 133/79
[2020-09-06] MEDS: LEVETIRACETAM (250 MG) 250 MG TABLET PO SCH (20:52)
--- NOTE | 2020-09-07 06:23 | NUR ---
MS RN NOTES ON BED A/O X2-3,TALKING TO SELF AT TIMES,AMBULATES TO THE BATHROOM WITH ASSIST,SITTER AT BEDSIDE.CALL LIGHT IN REACH,NEEDS ATTENDED.
[2020-09-07 06:41] LABS: BASOPHILS % (AUTO) 0.5 % (0.0-2.0); EOSINOPHILS % (AUTO) 8.1 % (0.0-6.0); HEMATOCRIT 41 % (39-51); HEMOGLOBIN 13.8 g/dL (13.5-17.5); LYMPHOCYTES # (AUTO) 0.8 /CMM (0.8-4.8); LYMPHOCYTES % (AUTO) 11.4 % (20.0-44.0); MEAN CORPUSCULAR HGB CONC 34 g/dl (31.0-36.0); MEAN CORPUSCULAR VOLUME 96 fL (80-96); MONOCYTES # (AUTO) 0.8 /CMM (0.1-1.30); MONOCYTES % (AUTO) 10.3 % (2.0-12.0); NEUTROPHILS # (AUTO) 5.2 /CMM (1.8-8.9); NEUTROPHILS % (AUTO) 69.7 % (43.0-81.0); PLATELET COUNT (AUTO) 156 /CMM (150-450); RED BLOOD CELL COUNT(AUTO) 4.27 MIL/uL (4.5-6.0); WHITE BLOOD COUNT (AUTO) 7.4 K/uL (4.3-11.0)
[2020-09-07 06:53] LABS: CALCIUM, SERUM 9.7 mg/dL (8.5-10.1); CARBON DIOXIDE 21 mmol/L (21-32); CHLORIDE 106 mmol/L (98-107); CREATININE 2.9 mg/dL (0.6-1.3); GLUCOSE 94 mg/dL (74-106); MAGNESIUM 2.3 mg/dL (1.8-2.4); PHOSPHORUS 3.1 mg/dL (2.5-4.9); POTASSIUM 3.9 mmol/L (3.5-5.1); SODIUM SERUM 139 mmol/L (136-145); UREA NITROGEN, BLOOD 33 mg/dL (7-18)
--- NOTE | 2020-09-07 07:40 | NUR ---
Patient is awake , A/O x2-3. Speaks loud. Pt is on room air , tolerating well with ni distress noted. IV line intact and patent , flushing well. Sitter at bedside. Patient is able to use bathroom with assistance. Safety measures in place. Will continue to monitor
[2020-09-07 07:51] VITALS: BP 121/53
[2020-09-07 07:54] VITALS: BP 121/53
[2020-09-07] MEDS: LEVETIRACETAM (250 MG) 250 MG TABLET PO SCH ×2 (08:52→20:45)
--- NOTE | 2020-09-07 15:30 | NUR ---
Patient's family brought in IPad and signal inspector. Belonging added to valuable form
[2020-09-07 15:48] VITALS: BP 137/81
[2020-09-07] MEDS: CEFTRIAXONE 1 G in IV D5W 50 ML IV SCH (18:14)
--- NOTE | 2020-09-07 19:35 | NUR ---
MS RN NOTES RECEIVED ON BED A/O X2-3,NO SOB,CONVERSANT BUT EASILY FORGETFUL,SALINE LOCK RIGHT WRIST INTACT AND PATENT.AMBULATES WITH STANDBY ASSIST.SITTER AT BEDSIDE FOR SAFETY,PT HAS TENDENCY TO WANDER.WILL CONTINUE TO MONITOR BEHAVIOR.
--- NOTE | 2020-09-07 19:40 | NUR ---
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 Addendum: 09/07/20 at 2206 by IKER HELLER RN NOTES NOT FOR THIS PATIENT
--- NOTE | 2020-09-07 19:51 | NUR ---
Patient remains stable throughout the shift . Will endorse to next shift RN
[2020-09-07 20:00] VITALS: BP 120/84
--- NOTE | 2020-09-07 20:40 | NUR ---
MS HAMMER NOTES [facility] CREW CAME TO UTILIZATION MANAGEMENT UM NURSE PATIENT FOR D/S TO [facility],APPARENTLY BLOOD PRESSURE ON THE HIGH SIDE AT 179/83,PULSE-64.PATIENT IN PAIN.MEDICATED WITH NORCO 5/325MG,1 TAB PO ORDERED FOR MODERATE PAIN 5/10 ON PAIN SCALE.WILL MONITOR . Addendum: 09/07/20 at 2208 by IKER HELLER RN NOTES NOT FOR THIS PATIENT
[2020-09-08 06:37] LABS: BASOPHILS # (AUTO) 0.1 /CMM (0.0-0.2); BASOPHILS % (AUTO) 1.1 % (0.0-2.0); EOSINOPHILS % (AUTO) 7.5 % (0.0-6.0); HEMATOCRIT 44 % (39-51); HEMOGLOBIN 14.5 g/dL (13.5-17.5); LYMPHOCYTES # (AUTO) 1.1 /CMM (0.8-4.8); MEAN CORPUSCULAR HGB CONC 33 g/dl (31.0-36.0); MEAN CORPUSCULAR VOLUME 97 fL (80-96); MONOCYTES # (AUTO) 0.6 /CMM (0.1-1.30); MONOCYTES % (AUTO) 8.5 % (2.0-12.0); NEUTROPHILS # (AUTO) 4.8 /CMM (1.8-8.9); NEUTROPHILS % (AUTO) 67.9 % (43.0-81.0); PLATELET COUNT (AUTO) 162 /CMM (150-450); RED BLOOD CELL COUNT(AUTO) 4.47 MIL/uL (4.5-6.0); WHITE BLOOD COUNT (AUTO) 7.1 K/uL (4.3-11.0)
--- NOTE | 2020-09-08 06:53 | NUR ---
MS RN NOTES NO SIGNIFICANT CHANGE IN STATUS,CALM AND QUIET THRU OUT SHIFT,SITTER AT BEDSIDE,D/C PLAN AWAITING FOR PLACEMENT.WILL ENDORSE TO IMMACULATE FOR [place].
--- NOTE | 2020-09-08 07:08 | NUR ---
MS RN OPENING NOTES RECEIVED PT AWAKE IN BED AT THIS TIME. AOX3. NO SOB NOTED, NO S/S OF ANY ACUTE DISTRESS NOTED. NO C/O PAIN AT THIS TIME. RESPIRATIONS ARE EVEN AND UNLABORED WITH EQUAL RISE AND FALL IN CHEST. PT STABLE ON RA. IV ACCESS NOTED IN RIGHT WRIST G#22, INTACT, PATENT AND FLUSHING WELL. SAFETY PRECAUTION IN PLACE AND MAINTAINED AT ALL TIMES. BED IN LOWEST LOCKED POSITION, HOB ELEVATED, SIDE RAILS UP X 2, CALL LIGHT WITHIN REACH. WILL CONTINUE TO MONITOR
[2020-09-08 07:11] LABS: ALANINE AMINOTRANSFERASE 14 U/L (12-78); ALBUMIN 3.1 g/dL (3.4-5.0); ALKALINE PHOSPHATASE 91 U/L (46-116); ASPARTATE AMINOTRANSFERASE 21 U/L (15-37); BILIRUBIN,TOTAL 0.4 mg/dL (0.2-1.0); CALCIUM, SERUM 9.7 mg/dL (8.5-10.1); CARBON DIOXIDE 20 mmol/L (21-32); CHLORIDE 106 mmol/L (98-107); CREATINE KINASE, TOTAL 42 U/L (39-308); CREATININE 2.9 mg/dL (0.6-1.3); GLUCOSE 102 mg/dL (74-106); MAGNESIUM 2.2 mg/dL (1.8-2.4); PHOSPHORUS 3.1 mg/dL (2.5-4.9); POTASSIUM 4.1 mmol/L (3.5-5.1); SODIUM SERUM 139 mmol/L (136-145); TOTAL PROTEIN, SERUM 6.7 g/dL (6.4-8.2); UREA NITROGEN, BLOOD 32 mg/dL (7-18)
[2020-09-08 08:00] VITALS: BP 113/69
[2020-09-08] MEDS: LEVETIRACETAM (250 MG) 250 MG TABLET PO SCH (09:23)
[2020-09-08] MEDS ORDERED: CEPH-570 PO (13:47)
[2020-09-08] MEDS ORDERED: LEVE250T2 PO (13:47)
--- NOTE | 2020-09-08 15:56 | NUR ---
GRAIN LOADER NOTES PATIENT DISCHARGED TO HOME AT THIS TIME. PT IN MEDICALLY STABLE CONDITION. ALL CARE NEEDS, MEDICATION AND TREATMENT ADMINISTERED ANTICIPATED PER ORDER. PT DISCHARGE INSTRUCTIONS PROVIDED AND PT VERBALIZED UNDERSTANDING. ALL DISCHARGE DOCUMENTATION SIGNED BY THE PATIENT AND HANDED TO PATIENT. PICTURES TAKEN AND FILED IN CHART. BELONGINGS ACCOUNTED FOR, SIGNED BY PT AND FILED IN CHART. IV ACCESS REMOVED, PRESSURE APPLIED, SECURED WITH GAUZE AND TAPE. NO BLEEDING NOTED, NO S/S OF INFILTRATION NOTED. PT ACCOMPANIED TO LOBBY BY TOOTIE CLARK VIA WHEEL CHAIR.
[2020-09-09 08:06] LABS: PTH, INTACT 62 pg/mL (15-65)
[2020-09-11 16:25] LABS: *SPE A/G RATIO 0.9 (0.7-1.7); *SPE ALBUMIN 2.9 g/dL (2.9-4.4); *SPE ALPHA-1-GLOBULIN 0.2 g/dL (0.0-0.4); *SPE ALPHA-2-GLOBULIN 0.8 g/dL (0.4-1.0); *SPE BETA GLOBULIN 0.9 g/dL (0.7-1.3); *SPE GLOBULIN, TOTAL 3.1 g/dL (2.2-3.9); *SPE M-SPIKE Not Observed g/dL (Not Observed); *SPEGAMMA GLOBULIN 1.1 g/dL (0.4-1.8)
== END 2020-09-08 16:00 | disposition home health service (06) | DRG 689 ==
LOC: ER 12:32 → TELE 15:59 → MED 09-06 09:10
PROVIDERS: ATTEND Student in an Organized Health Care Education/Training Program
DX: N39.0 Urinary tract infection, site not specified (principal); G92 Toxic encephalopathy; I21.A1 Myocardial infarction type 2; N17.9 Acute kidney failure, unspecified; I13.0 Hypertensive heart and chronic kidney disease with heart failure and stage 1 through stage 4 chronic kidney disease, or unspecified chronic kidney disease; N18.4 Chronic kidney disease, stage 4 (severe); I50.9 Heart failure, unspecified; Z85.038 Personal history of other malignant neoplasm of large intestine; Z79.82 Long term (current) use of aspirin; Z79.899 Other long term (current) drug therapy; F03.90 Unspecified dementia, unspecified severity, without behavioral disturbance, psychotic disturbance, mood disturbance, and anxiety; F39 Unspecified mood [affective] disorder; E83.52 Hypercalcemia; I67.2 Cerebral atherosclerosis; Z86.73 Personal history of transient ischemic attack (TIA), and cerebral infarction without residual deficits; Z91.81 History of falling; Z91.14 Patient's other noncompliance with medication regimen; E83.39 Other disorders of phosphorus metabolism; Z87.442 Personal history of urinary calculi; E86.9 Volume depletion, unspecified; B96.1 Klebsiella pneumoniae [K. pneumoniae] as the cause of diseases classified elsewhere; R56.9 Unspecified convulsions
CPT/HCPCS: 36415; 70450-TC; 71045-TC; 76770-TC; 80048-TC; 80053-TC; 80061-TC; 80076-TC; 81001; 82140-TC; 82550-TC; 82962-TC; 83735-TC; 83970; 84100-TC; 84155; 84165; 84439-TC; 84443-TC; 84484-TC; 85025-TC; 85730-TC; 87081-TC; 87086-TC; 87186-TC; 93307-TC; 95819-TC; 97116-TC; 97530-TC; C9803; G0378; G0480; J0696; J1953; J3490; J7030; J7050; J7060

== ENCOUNTER 2021-06-16 20:53 | Inpatient (IN) | payer MEDICARE, OTHER ==
[~2021-06-16] VITALS: Ht 188 cm; Wt 69.4 kg
[~2021-06-16 20:53] MED LIST changes: -ASPI-1420 PO; -Bisacodyl PO; -CARV6.252 PO; +CEPH-570 PO; -VALS40TA4 PO
--- NOTE | 2021-06-16 20:56 | NUR ---
Pt bibra c/o seizure at restaurant. Pt aaox3 breathing evenly and unlabored. Pt denies any pain, neuro checks intact. Pt does have hx of seizure disorder, but is not med compliant. Pt attached to monitor and pox with seizure precautions. MD at bedside. Skin is warm and dry. Pt given blanket and call light within reach
[2021-06-16] MEDS ORDERED: LEVETIRACETAM (500MG) 500 MG in IV NS 0.9% 100 ML IV ONE (21:00)
[2021-06-16] MEDS ORDERED: LEVETIRACETAM (500MG) 500 MG/5 ML VIAL IV ONE ×2 (21:06→22:45)
[2021-06-16 21:28] LABS: BASOPHILS % (AUTO) 0.8 % (0.0-2.0); HEMATOCRIT 42 % (39-51); HEMOGLOBIN 14.1 g/dL (13.5-17.5); LYMPHOCYTES # (AUTO) 1.4 K/uL (0.8-4.8); LYMPHOCYTES % (AUTO) 23.2 % (20.0-44.0); MEAN CORPUSCULAR HGB CONC 33 g/dl (31.0-36.0); MEAN CORPUSCULAR VOLUME 96 fL (80-96); MONOCYTES # (AUTO) 0.7 K/uL (0.1-1.30); MONOCYTES % (AUTO) 11.5 % (2.0-12.0); NEUTROPHILS # (AUTO) 3.6 K/uL (1.8-8.9); NEUTROPHILS % (AUTO) 60.5 % (43.0-81.0); PLATELET COUNT (AUTO) 142 K/uL (150-450)
[2021-06-16 22:03] LABS: ALANINE AMINOTRANSFERASE 14 U/L (12-78); ALBUMIN 3.6 g/dL (3.4-5.0); ALKALINE PHOSPHATASE 101 U/L (46-116); ASPARTATE AMINOTRANSFERASE 22 U/L (15-37); BILIRUBIN,DIRECT 0.2 mg/dL (0.0-0.2); BILIRUBIN,TOTAL 0.4 mg/dL (0.2-1.0); CALCIUM, SERUM 10.1 mg/dL (8.5-10.1); CARBON DIOXIDE 24 mmol/L (21-32); CHLORIDE 103 mmol/L (98-107); CREATININE 3.1 mg/dL (0.6-1.3); GLUCOSE 99 mg/dL (74-106); POTASSIUM 4.2 mmol/L (3.5-5.1); SODIUM SERUM 138 mmol/L (136-145); TOTAL PROTEIN, SERUM 7.4 g/dL (6.4-8.2); UREA NITROGEN, BLOOD 47 mg/dL (7-18)
[2021-06-16] MEDS ORDERED: ASPIRIN 81 MG TAB.CHEW PO ONE (22:30)
[2021-06-16] MEDS ORDERED: IV NS 0.9% 1,000 ML BAG IV ONE (22:30)
[2021-06-16] MEDS ORDERED: ASPIRIN 81 MG TAB.CHEW ONE (22:45)
[2021-06-16] MEDS ORDERED: LEVETIRACETAM (500MG) 500 MG in IV NS 0.9% 100 ML IV SCH (23:00)
--- NOTE | 2021-06-16 23:00 | NUR ---
MRSA SWAB COLLECTED AND SENT TO LAB. PATIENT'S BELONGINGS LIST DONE.
--- NOTE | 2021-06-16 23:02 | NUR ---
spoke to Glaen, daughter and POA. [phone]. Per daughter, pt has hx of uti, kidney stint, and low bp
--- NOTE | 2021-06-17 00:15 | NUR ---
ATTEMPTED TO CONTACT EM[facility] HOSPITALIST. WAS TOLD BY ANSWERING SERVICE THAT THEY DO NOT HAVE [facility] IN HIS SYSTEM.
--- NOTE | 2021-06-17 00:20 | NUR ---
[facility] STILL UNABLE TO REACH [facility].
--- NOTE | 2021-06-17 01:00 | NUR ---
[phone] [facility]. UNABLE TO REACH HOSPITALIST.
--- NOTE | 2021-06-17 01:30 | NUR ---
[phone] [facility]. UNABLE TO REACH HOSPITALIST.
--- NOTE | 2021-06-17 02:33 | NUR ---
gave report to HARMAN Thacker for pamella
[2021-06-17 02:40] VITALS: BP 121/72
[2021-06-17] MEDS ORDERED: ONDANSETRON HCL/PF 4 MG/2 ML VIAL IVP PRN (03:00)
[2021-06-17] MEDS ORDERED: Z GUARD REMEDY 2 OZ OINT TP PRN (03:00)
[2021-06-17] MEDS ORDERED: ZOLPIDEM TARTRATE 5 MG TABLET PO PRN (03:00)
[2021-06-17] MEDS ORDERED: HYDROCODONE/APAP 5/325MG TABLET PO PRN (03:00)
[2021-06-17] MEDS ORDERED: MAGNESIUM HYDROXIDE 30 ML UDC PO PRN (03:00)
[2021-06-17] MEDS ORDERED: MAG HYDROX/AL HYDROX/SIMETH 30 ML UDC PO PRN (03:00)
[2021-06-17] MEDS ORDERED: ACETAMINOPHEN 325 MG TABLET PO PRN (03:00)
--- NOTE | 2021-06-17 03:00 | NUR ---
SUPERVISOR OPEN HEARTH STOCKYARD OPENING NOTES: RECEIVED PATIENT VIA GURNEY FROM ER AT 0250 PATIENT IS A/O X3 ABLE TO COMMUNICATE INDEPENDENTLY, BUT WITH DIFFICULTY HEARING, AMBULATORY WITH ASSISTANCE, PLACE IN BED COMFORTABLY, SKIN ASSESSMENT DONE , NO SKIN ISSUES OBSERVED, INVENTORIES DONE, PATIENT WITH IV LINE ON LAC #20 SL, INFUSING WELL, WITH PACEMAKER ON TELE MONITORING WITH READING OF SR WITH BBB AND COUPLET/ A PACING , PLACED IN BED COMFORTABLY, BED IN LOW POSITION, NAIMA;L LIGHTS WITHIN REACH, REMIND PATIENT TO USE THE CALL LIGHTS WHEN NEEDED ASSISTANCE, WILL CONTINUE TO MONITOR.
[2021-06-17 04:00] VITALS: BP 119/70
[2021-06-17] MEDS: ENOXAPARIN SODIUM 30 MG/0.3 ML DISP.SYRIN SQ SCH ×2 (04:39→21:15)
--- NOTE | 2021-06-17 06:28 | NUR ---
PARI MUTUAL TICKET CHECKER CLOSING NOTES; PATIENT SLEEP IN BED COMFORTABLY, BED IN LOW POSITION, CALL LIGHTS WITHIN REACH, NOC OMPLAIN OF PAIN AND DISCOMFORT AT TIS TIME, PATIENT WS ORIENTED TO PLACE, REMIND TO USE THE CALL LIGHTS WHEN NEEDED ASSISTANCE, ALL NEEDS MET, ENDORSE TO INCOMING SHIFT.
--- NOTE | 2021-06-17 07:30 | NUR ---
SLEEP MEDICINE PHYSICIAN OPENING NOTES: RECEIVED PATIENT RESTING IN BED PATIENT IS PATIENT IS A/O X3 ABLE TO MAKE NEEDS KNOWN. PATIENT IS BREATHING EVENLY AND NONLABORED ON ROOM AIR. NO SIGNS OF DISTRESS NOTED. PATIENT WITH IV LINE ON LAC #20 SL, PATENT AND INTACT. PATIENT NOTED WITH PACEMAKER ON TELE MONITORING WITH READING OF SR WITH BBB AND COUPLET/ A PACING , SAFETY MEASURES ARE IN PLACE, BED IN LOW POSITION, NAIMA; LIGHTS WITHIN REACH, REMIND PATIENT TO USE THE CALL LIGHTS WHEN NEEDED ASSISTANCE, WILL CONTINUE TO MONITOR.
[2021-06-17 08:00] VITALS: BP 140/77
[2021-06-17] MEDS: ASPIRIN EC 81 MG TABLET.DR PO SCH (08:04)
[2021-06-17] MEDS: PANTOPRAZOLE 40 MG TABLET.DR PO SCH (08:04)
[2021-06-17] MEDS: LEVETIRACETAM (500MG) 500 MG in IV NS 0.9% 100 ML IV SCH ×2 (10:53→22:52)
[2021-06-17 12:00] VITALS: BP 108/56
--- NOTE | 2021-06-17 15:43 | NUR ---
RN NOTE MD SAW PATIENT ORDERED NEUROLOGY CONSULT MD NOTIFIED. FAMILY RETURNED MESSAGE REGARDING DEFIBRILLATOR. FAMILY DOES NOT HAVE ROOF ASSEMBLER INFORMATION, SCRAP PILER MADE AWARE.
[2021-06-17 15:55] LABS: BASOPHILS # (AUTO) 0.1 K/uL (0.0-0.2); BASOPHILS % (AUTO) 1.9 % (0.0-2.0); CALCIUM, SERUM 9.3 mg/dL (8.5-10.1); CARBON DIOXIDE 24 mmol/L (21-32); CHLORIDE 105 mmol/L (98-107); CREATININE 2.9 mg/dL (0.6-1.3); EOSINOPHILS % (AUTO) 6.2 % (0.0-6.0); GLUCOSE 98 mg/dL (74-106); HEMATOCRIT 40 % (39-51); LYMPHOCYTES % (AUTO) 23.7 % (20.0-44.0); MEAN CORPUSCULAR HGB CONC 33 g/dl (31.0-36.0); MEAN CORPUSCULAR VOLUME 97 fL (80-96); MONOCYTES # (AUTO) 0.5 K/uL (0.1-1.30); MONOCYTES % (AUTO) 11.5 % (2.0-12.0); NEUTROPHILS # (AUTO) 2.4 K/uL (1.8-8.9); NEUTROPHILS % (AUTO) 56.7 % (43.0-81.0); PLATELET COUNT (AUTO) 150 K/uL (150-450); POTASSIUM 4.6 mmol/L (3.5-5.1); RED BLOOD CELL COUNT(AUTO) 4.13 MIL/uL (4.5-6.0); SODIUM SERUM 138 mmol/L (136-145); UREA NITROGEN, BLOOD 45 mg/dL (7-18); WHITE BLOOD COUNT (AUTO) 4.3 K/uL (4.3-11.0)
[2021-06-17 16:00] VITALS: BP 122/77
[2021-06-17 16:02] LABS: BILIRUBIN,URINE NEGATIVE (NEGATIVE); COLOR,URINE YELLOW (YELLOW); LEUKOCYTE ESTERASE ,URINE LARGE (NEGATIVE); NITRITE, URINE NEGATIVE (NEGATIVE); PROTEIN,URINE 30 mg/dl (NEGATIVE); UGLUCOSE NEGATIVE (NEGATIVE); UROBILINOGEN,URINE 0.2 EU/dL (0.2)
[2021-06-17 16:12] LABS: CREATININE, URINE 61.4 MG/DL (30.0-125.0); URINE TOTAL PROTEIN 80.2 mg/dL (0-11.9)
[2021-06-17 16:31] LABS: BACTERIA,URINE 4+ /HPF (None Seen); SQUAMOUS EPITHELIAL CELL,UR 0-2 /HPF (None Seen); WBC,URINE 51-80 /HPF (0-3)
--- NOTE | 2021-06-17 18:23 | NUR ---
PATENT LITIGATION ASSOCIATE CLOSING NOTES: PATIENT RESTING IN BED PATIENT IS PATIENT IS A/O X3 ABLE TO MAKE NEEDS KNOWN. PATIENT IS BREATHING EVENLY AND NONLABORED ON ROOM AIR. NO SIGNS OF DISTRESS NOTED. PATIENT WITH IV LINE ON LAC #20 SL, PATENT AND INTACT. PATIENT NOTED WITH PACEMAKER ON TELE MONITORING WITH READING OF SR WITH BBB AND COUPLET/ A PACING. ALL MEDICATIONS GIVEN ORDERED. SAFETY MEASURES ARE IN PLACE, BED IN LOW POSITION, CALLIGHTS WITHIN REACH, REMIND PATIENT TO USE THE CALL LIGHTS WHEN NEEDED ASSISTANCE, WILL ENDORSE TO ONCOMING SHIFT
--- NOTE | 2021-06-17 19:24 | NUR ---
MS RN NOTES PATIENT RESTING IN BED PATIENT IS PATIENT IS A/O X3 ABLE TO MAKE NEEDS KNOWN. PATIENT IS BREATHING EVENLY AND NONLABORED ON ROOM AIR. NO SIGNS OF DISTRESS NOTED. PATIENT WITH IV LINE ON LAC #20 SL, PATENT AND INTACT. PATIENT NOTED WITH PACEMAKER .ON TELE MONITORING WITH READING OF SR WITH BBB AND COUPLET/ A PACING. SAFETY MEASURES ARE IN PLACE, BED IN LOW POSITION, CALL LIGHTS WITHIN REACH, REMIND PATIENT TO USE THE CALL LIGHTS WHEN NEEDED ASSISTANCE, WILL CONTINUE TO MONITOR.
[2021-06-17 20:00] VITALS: BP 124/75
[2021-06-17] MEDS ORDERED: ATORVASTATIN 40 MG TABLET PO SCH (22:00)
[2021-06-18] VITALS: BP 130/85
[2021-06-18 04:00] VITALS: BP 124/66
[2021-06-18 06:25] LABS: BASOPHILS % (AUTO) 0.7 % (0.0-2.0); EOSINOPHILS % (AUTO) 5.7 % (0.0-6.0); HEMATOCRIT 41 % (39-51); HEMOGLOBIN 13.7 g/dL (13.5-17.5); LYMPHOCYTES # (AUTO) 1.1 K/uL (0.8-4.8); LYMPHOCYTES % (AUTO) 18.9 % (20.0-44.0); MEAN CORPUSCULAR HGB CONC 34 g/dl (31.0-36.0); MEAN CORPUSCULAR VOLUME 96 fL (80-96); MONOCYTES # (AUTO) 0.6 K/uL (0.1-1.30); MONOCYTES % (AUTO) 10.8 % (2.0-12.0); NEUTROPHILS # (AUTO) 3.7 K/uL (1.8-8.9); NEUTROPHILS % (AUTO) 63.9 % (43.0-81.0); PLATELET COUNT (AUTO) 158 K/uL (150-450); RED BLOOD CELL COUNT(AUTO) 4.23 MIL/uL (4.5-6.0); WHITE BLOOD COUNT (AUTO) 5.9 K/uL (4.3-11.0)
--- NOTE | 2021-06-18 06:40 | NUR ---
MS RN NOTES PATIENT RESTING IN BED PATIENT IS PATIENT IS A/O X3 ABLE TO MAKE NEEDS KNOWN. PATIENT IS BREATHING EVENLY AND NONLABORED ON ROOM AIR. NO SIGNS OF DISTRESS NOTED. PATIENT WITH IV LINE ON L WRIST #20 SL, PATENT AND INTACT. PATIENT NOTED WITH PACEMAKER .ON TELE MONITORING WITH READING OF SR WITH BBB. SAFETY MEASURES ARE IN PLACE, BED IN LOW POSITION, CALL LIGHTS WITHIN REACH, REMIND PATIENT TO USE THE CALL LIGHTS WHEN NEEDED ASSISTANCE, WILL ENDORSE CARE TO DAY SHIFT NURSE.
[2021-06-18 07:09] LABS: ALANINE AMINOTRANSFERASE 12 U/L (12-78); ALBUMIN 2.9 g/dL (3.4-5.0); ALKALINE PHOSPHATASE 91 U/L (46-116); ASPARTATE AMINOTRANSFERASE 26 U/L (15-37); BILIRUBIN,TOTAL 0.5 mg/dL (0.2-1.0); CALCIUM, SERUM 9.4 mg/dL (8.5-10.1); CARBON DIOXIDE 20 mmol/L (21-32); CHLORIDE 105 mmol/L (98-107); CREATININE 2.8 mg/dL (0.6-1.3); GLUCOSE 88 mg/dL (74-106); MAGNESIUM 2.5 mg/dL (1.8-2.4); PHOSPHORUS 2.8 mg/dL (2.5-4.9); POTASSIUM 4.4 mmol/L (3.5-5.1); SODIUM SERUM 137 mmol/L (136-145); TOTAL PROTEIN, SERUM 6.4 g/dL (6.4-8.2); UREA NITROGEN, BLOOD 45 mg/dL (7-18)
[2021-06-18 07:16] LABS: CHOLESTEROL 112 mg/dL (<200); CREATINE KINASE, TOTAL 54 U/L (39-308); HDL CHOLESTEROL 48 mg/dL (40-60); LDL 56 mg/dL (0-99); THYROID STIMULATING HORMONE 2.731 uIU/mL (0.358-3.74); TRIGLYCERIDES 83 mg/dL (30-150)
[2021-06-18] MEDS: PANTOPRAZOLE 40 MG TABLET.DR PO SCH (07:54)
[2021-06-18] MEDS: ASPIRIN EC 81 MG TABLET.DR PO SCH (07:58)
[2021-06-18 08:00] VITALS: BP 122/64
[2021-06-18] MEDS: LEVETIRACETAM (500MG) 500 MG in IV NS 0.9% 100 ML IV SCH (10:08)
[2021-06-18] MEDS ORDERED: ATOR40TA PO (11:42)
[2021-06-18] MEDS ORDERED: LEVE250T2 PO (11:42)
[2021-06-18] MEDS ORDERED: ASPI-1420 PO (11:42)
[2021-06-18] MEDS ORDERED: LEVO250S3 PO (11:43)
[2021-06-18 12:00] VITALS: BP 118/70
[2021-06-18] MEDS ORDERED: CEFTRIAXONE 1 G in IV D5W 50 ML IV SCH (12:00)
--- NOTE | 2021-06-18 16:15 | NUR ---
DISCHARGE INSTRUCTIONS GIVEN ORDERED. ENCOURAGE TO FOLLOW UP WITH PMD INSTRUCTED. ALL QUESTIONS AND CONCERNS ADDRESSED. PATENT VERBALIZED UNDERSTANDING. MEDICATION RECONCILIATION FORM COMPLETED AND COPY GIVEN TO PATIENT. IV REMOVED WITH CATHETER INTACT, PRESSURE DRESSING APPLIED. TELE NIT RETURNED TO ICU, PATIENT TAKEN TO VEHICLE WITH ALL PERSONAL BELONGINGS, ACCOMPANIED BY STAFF. NO DISTRESS NOTED AT TIME OF DEPARTURE.
[2021-06-18] MEDS ORDERED: LEVETIRACETAM (250 MG) 250 MG TABLET PO SCH (21:00)
[2021-06-19 10:11] LABS: *SPE A/G RATIO 1.1 (0.7-1.7); *SPE ALPHA-1-GLOBULIN 0.2 g/dL (0.0-0.4); *SPE ALPHA-2-GLOBULIN 0.7 g/dL (0.4-1.0); *SPE BETA GLOBULIN 0.8 g/dL (0.7-1.3); *SPE M-SPIKE Not Observed g/dL (Not Observed)
== END 2021-06-18 18:38 | disposition home health service (06) | DRG 100 ==
LOC: ER 20:55 → TELE 06-17 02:17
PROVIDERS: ADMIT Internal Medicine; ATTEND Internal Medicine
DX: G40.909 Epilepsy, unspecified, not intractable, without status epilepticus (principal); I21.4 Non-ST elevation (NSTEMI) myocardial infarction; N17.0 Acute kidney failure with tubular necrosis; I13.0 Hypertensive heart and chronic kidney disease with heart failure and stage 1 through stage 4 chronic kidney disease, or unspecified chronic kidney disease; G93.40 Encephalopathy, unspecified; I50.22 Chronic systolic (congestive) heart failure; N39.0 Urinary tract infection, site not specified; Z86.73 Personal history of transient ischemic attack (TIA), and cerebral infarction without residual deficits; Z90.49 Acquired absence of other specified parts of digestive tract; Z85.038 Personal history of other malignant neoplasm of large intestine; Z79.899 Other long term (current) drug therapy; F03.90 Unspecified dementia, unspecified severity, without behavioral disturbance, psychotic disturbance, mood disturbance, and anxiety; Z91.19 Patient's noncompliance with other medical treatment and regimen; Z95.810 Presence of automatic (implantable) cardiac defibrillator; N18.30 Chronic kidney disease, stage 3 unspecified
CPT/HCPCS: 36415; 70450-TC; 71045-TC; 72125-TC; 76770-TC; 80048-TC; 80053-TC; 80061-TC; 80076-TC; 81001; 82550-TC; 82570-TC; 83735-TC; 83970; 84100-TC; 84155; 84155-TC; 84165; 84300-TC; 84443-TC; 84484-TC; 85025-TC; 87081-TC; 87086-TC; 87186-TC; 93307-TC; C9803; G0378; G0480; J0696; J1650; J1953; J7030; J7050; J7060

== ENCOUNTER 2021-07-29 14:39 | Emergency (ER) | payer OTHER ==
[~2021-07-29] VITALS: Ht 188 cm; Wt 76.2 kg
[~2021-07-29 14:39] MED LIST changes: +ASPI-1420 PO; +ATOR40TA PO; -CEPH-570 PO; +LEVO250S3 PO
--- NOTE | 2021-07-29 14:56 | NUR ---
[id number] FOR SYNCOPAL EPISODE WHILE AT A [employer]. BG 89 AAOX4, VERBALLY RESPONSIVE INDUSTRIAL MAINTENANCE TECH. DENIES CP. THE PATIENT IS ALERT AND ORIENTED X3. IN ROOM AIR AND DENIES SOB. RESPIRATION REGULAR AND UNLABORED. ATTACHED TO THE MONITOR. WARM BLANKET PROVIDED FOR COMFORT. WILL CONTINUE TO MONITOR THE PATIENT. Addendum: 07/29/21 at 1712 by VELMA The patient is picked up by friend Watson and Semaj (daughter) made aware.
[2021-07-29] MEDS ORDERED: IV NS 0.9% 1,000 ML BAG IV ONE (15:00)
--- NOTE | 2021-07-29 15:01 | NUR ---
WILLIEAUGUST DAUGHTER [phone] WOULD LIKE A CALL FROM THE NURSE
[2021-07-29 15:14] LABS: BASOPHILS % (AUTO) 0.9 % (0.0-2.0); EOSINOPHILS % (AUTO) 3.6 % (0.0-6.0); HEMATOCRIT 41 % (39-51); HEMOGLOBIN 13.5 g/dL (13.5-17.5); LYMPHOCYTES # (AUTO) 1.1 K/uL (0.8-4.8); LYMPHOCYTES % (AUTO) 21.2 % (20.0-44.0); MEAN CORPUSCULAR HGB CONC 33 g/dl (31.0-36.0); MEAN CORPUSCULAR VOLUME 97 fL (80-96); MONOCYTES # (AUTO) 0.6 K/uL (0.1-1.30); MONOCYTES % (AUTO) 11.9 % (2.0-12.0); NEUTROPHILS # (AUTO) 3.2 K/uL (1.8-8.9); NEUTROPHILS % (AUTO) 62.4 % (43.0-81.0); PLATELET COUNT (AUTO) 213 K/uL (150-450); RED BLOOD CELL COUNT(AUTO) 4.25 MIL/uL (4.5-6.0); WHITE BLOOD COUNT (AUTO) 5.2 K/uL (4.3-11.0)
[2021-07-29 15:24] LABS: CALCIUM, SERUM 9.6 mg/dL (8.5-10.1); CARBON DIOXIDE 28 mmol/L (21-32); CHLORIDE 104 mmol/L (98-107); GLUCOSE 102 mg/dL (74-106); POTASSIUM 4.7 mmol/L (3.5-5.1); SODIUM SERUM 137 mmol/L (136-145); UREA NITROGEN, BLOOD 41 mg/dL (7-18)
[2021-07-29 15:36] LABS: ALANINE AMINOTRANSFERASE 13 U/L (12-78); ALBUMIN 3.1 g/dL (3.4-5.0); ALKALINE PHOSPHATASE 89 U/L (46-116); ASPARTATE AMINOTRANSFERASE 16 U/L (15-37); BILIRUBIN,DIRECT 0.2 mg/dL (0.0-0.2); BILIRUBIN,TOTAL 0.3 mg/dL (0.2-1.0); TOTAL PROTEIN, SERUM 6.9 g/dL (6.4-8.2)
--- NOTE | 2021-07-29 16:36 | NUR ---
SPOKE WITH WILLIEAUGUST (DAUGHTER) AND GAVE UPDATE ABOUT THE PATIENT PER PATIENT`S REQUEST.
--- NOTE | 2021-07-29 17:12 | NUR ---
Patient does not wish to proceed with medical care recommended by Dr. Martinez. Patient given information related to possible complications, up to and including , which could occur as a result of leaving the hospital at this time. Patient verbalizes understanding of risks involved due to leaving against medical advice. Patient has signed AMA form.
[2021-07-29 17:13] VITALS: BP 139/74
== END 2021-07-29 17:13 | disposition left against medical advice (07) ==
LOC: ER 14:44
DX: R55 Syncope and collapse (principal); I10 Essential (primary) hypertension; Z95.0 Presence of cardiac pacemaker; Z85.038 Personal history of other malignant neoplasm of large intestine; Z79.899 Other long term (current) drug therapy; Z79.82 Long term (current) use of aspirin
CPT/HCPCS: 36415; 71045; 80048; 80076; 83880; 84484; 85025; 93005; 96360; 99285; J7030